=== PATIENT | female | born 1970 | race Caucasian/White ===

== ENCOUNTER 2018-06-15 15:15 | Emergency (ER) | payer OTHER, SELFPAY ==
[2018-06-15 15:18] VITALS: BP 155/97; PULSE 111; RESP 20; TEMP 37.3; O2SAT 99
--- NOTE | 2018-06-15 15:20 | DI.RAD.S_ITS ---
PROCEDURE: XR CHEST 1V INDICATIONS: chest pain TECHNIQUE: One view of the chest was acquired. COMPARISON: None. FINDINGS: Surgical changes and devices: None. Lungs and pleura: Lungs are clear. No pleural effusions or pneumothorax. Mediastinum: Mediastinal contours appear normal. Heart size is normal. Bones and chest wall: No suspicious bony lesions. Overlying soft tissues appear unremarkable. IMPRESSION: Normal chest. Dictated by: Annie Prieto M.D. on 06/15/2018 at 17:03 Approved by: Annie Prieto M.D. on 06/15/2018 at 17:05
[2018-06-15 15:55] LABS: Add Manual Diff / Slide Review NO; Basophils Absolute Auto 0 /uL (0-100); Basophils Percent Auto 0.7 % (0-2); Eosinophils Absolute Auto 200 /uL (0-450); Eosinophils Percent Auto 2.5 % (2-4); Hematocrit 39.7 % (36-46); Hemoglobin 13.1 g/dL (12.0-16.0); Lymphocytes Absolute Auto 1500 /uL (1100-4500); Mean Corpuscular HGB Conc 32.9 % (30-36); Mean Corpuscular Hemoglobin 28.5 PG (26-34); Mean Corpuscular Volume 86.5 fL (80-100); Monocytes Absolute Auto 400 /uL (0-900); Monocytes Percent Auto 5.4 % (3-14); Neutrophils Absolute Auto 4600 /uL (1500-7000); Neutrophils Percent Auto 68.4 % (50-75); Platelet Count 267 X10^3/uL (150-400); Red Blood Cell Count 4.59 X10^6/uL (4.0-5.2); Red Cell Distribution Width 13.4 % (11.6-14.8); White Blood Cell Count 6.7 X10^3/uL (4.5-11.0)
[2018-06-15 16:00] VITALS: BP 140/83; PULSE 93; RESP 14; O2SAT 98
[2018-06-15 16:04] LABS: Alanine Aminotransferase 28 IU/L (9-52); Albumin 4.5 g/dL (3.5-5.0); Albumin Globulin Ratio 1.5 (1.0-2.8); Alkaline Phosphatase 85 U/L (38-126); Aspartate Aminotransferase 25 IU/L (14-36); Bilirubin Total 0.5 mg/dL (0.2-1.3); Blood Urea Nitrogen 15 mg/dL (7-17); Calcium 8.8 mg/dL (8.4-10.2); Carbon Dioxide 22 mmol/L (22-32); Chloride 102 mmol/L (98-107); Creatine Kinase 56 U/L (30-135); Estimated Glomerular Filt Rate 59.2 mL/min (>60); Globulin 3.1 g/dL (1.7-4.1); Glucose 94 mg/dL (70-100); HEMOLYSIS 27 (0-50); Potassium 4.2 mmol/L (3.4-5.1); Sodium 136 mmol/L (137-145); Total Protein 7.6 g/dL (6.3-8.2)
[2018-06-15 16:14] LABS: Troponin I < 0.012 ng/mL (0.01-0.034)
[2018-06-15 16:50] VITALS: BP 140/84; PULSE 84; RESP 15; O2SAT 100
[2018-06-15 16:57] LABS: D Dimer < 200 ng/mL (<230)
--- NOTE | 2018-06-15 17:00 | ED_ITS ---
HPI - Chest Pain General Chief Complaint: Chest Pain Stated Complaint: CHEST/ARM PAIN Time Seen by Provider: 06/15/18 16:09 Source: patient Mode of arrival: ambulatory Limitations: no limitations History of Present Illness HPI narrative: The patient is a 47-year-old female who presents with left-sided chest and arm achiness. It has been ongoing for about 1-2 weeks. Does not change with exertion or rest. She says today is overall just not going away and she is getting nervous. She denies any shortness of breath. She can singly in her hand. It does not hurt when she breathes it is not worse with movement. It is fairly constant in nature MD complaint: chest pain Duration: constant Related Data Previous Rx's Medication Instructions Recorded sucralfate [Carafate] 1 gm PO ACHS #1 bot 02/10/16 estradiol 1 mg tablet 1 mg PO DAILY 30 Days #90 tab 05/18/18 medroxyprogesterone 5 mg tablet 5 mg PO DAILY #90 tab 05/18/18 Allergies Allergy/AdvReac Type Severity Reaction Status Date / Time amoxicillin [AMOXICILLIN] Allergy Unknown hives Unverified 07/03/17 12:09 Review of Systems Review of Systems GENERAL: Denies chills, fatigue, malaise, fever, sweats, travel HEENT: Denies sinus pain, ear pain, sore throat, difficulty swallowing, neck pain RESPIRATORY: Denies dyspnea, cough, wheezing, hemoptysis, sputum. CARDIOVASCULAR: See HPI GASTROINTESTINAL: Denies nausea, vomiting, abdominal pain, diarrhea, constipation, melena. : Denies dysuria, frequency, incontinence, hematuria, urinary retention, flank pain. MUSCULOSKELETAL: Denies weakness, joint pain, or bony pain SKIN: No rash, no erythema, no pruritus NEUROLOGIC: Denies weakness, dizziness, headache, numbness, change in speech, confusion PSYCHIATRIC: No concerning psychosocial issues. 12 point review of systems is negative except for those stated above and HPI [facility] Medical History GERD (gastroesophageal reflux disease) (Acute) Surgical History History of third molar tooth extraction Status post laparoscopic cholecystectomy Status post laparoscopy (09/27/14) Status post laparoscopy (06/24/15) Social History Smoking Status: Never smoker Social History Smoking Status: Never smoker Exam Initial Vital Signs Initial Vital Signs: Vital Signs Temperature 99.1 F 06/15/18 15:18 Pulse Rate 111 H 06/15/18 15:18 Respiratory Rate 20 06/15/18 15:18 Blood Pressure 155/97 H 06/15/18 15:18 Pulse Oximetry 99 06/15/18 15:18 GENERAL: Well-appearing, well-nourished and in no acute distress. HEENT: Head atraumatic,EOMI, pupils reactive, CARDIOVASCULAR: Regular rate and rhythm without murmurs, rubs or gallops.Pain not reproducible with palpaition or movement. RESPIRATORY: Breath sounds equal bilaterally, no wheezes rales or rhonchi. ABDOMEN: Soft, nontender. Normoactive bowel sounds all 4 quadrants. No guarding or rebound. EXTREMITIES: Normal range of motion, no clubbing or edema. Neurovascularly intact NEUROLOGICAL: Alert and oriented x4.Normal gait and speech. Cranial nerves II through XII grossly intact. SKIN: Warm, dry, no laceration, no petechiae, no rashes or lesions. Scores HEART Score Heart Score history: Slightly Suspicious Heart Score EKG: Non-Specific repolarization disturbance Heart Score Age: 45-64 years old Heart Score risk factors: No known risk factors Heart Score troponin: < or = to normal limit Heart Score Total: 2 PERC Score Age greater than or equal to 50 years: No Heart rate greater than or equal to 100 bpm: Yes Room Air O2 Sat less than 95%: No Unilateral leg swelling: No Recent trauma or surgery: No Hemoptysis: No Prior PE or DVT: No Hormone Use: Yes Total PERC Score: 2 Course Orders Ordered: ED Orders 06/15/18 15:20 XR chest 1V Stat EKG-12 Lead Stat 06/15/18 15:40 Complete Blood Count AUTO DIFF Stat Comprehensive Metabolic Panel Stat Troponin & CK Cardiac Panel Stat 06/15/18 16:40 D Dimer Stat Vital Signs - 8 hr 06/15/18 15:18 06/15/18 16:00 06/15/18 16:50 Temperature 99.1 F Pulse Rate 111 H 93 H 84 Respiratory Rate 20 14 15 Blood Pressure 155/97 H Blood Pressure [Left Arm] 140/83 140/84 Pulse Oximetry 99 98 100 03/24/19 17:15 06/15/18 17:47 Temperature Pulse Rate 86 84 Respiratory Rate 15 15 Blood Pressure 130/81 Blood Pressure [Left Arm] 144/80 H Pulse Oximetry 100 100 MDM - Chest Pain Lab Data Attestation: I reviewed the patient's lab results. Result diagrams: 06/15/18 15:40 06/15/18 15:40 Lab Results 06/15/18 06/15/18 06/15/18 Range/Units 15:40 15:40 16:40 WBC 6.7 (4.5-11.0) X10^3/uL RBC 4.59 (4.0-5.2) X10^6/uL Hgb 13.1 (12.0-16.0) g/dL Hct 39.7 (36-46) % MCV 86.5 (80-100) fL MCH 28.5 (26-34) PG MCHC 32.9 (30-36) % RDW 13.4 (11.6-14.8) % Plt Count 267 (150-400) X10^3/uL Neut % (Auto) 68.4 (50-75) % Lymph % (Auto) 23.0 L (25-40) % [place] % (Auto) 5.4 (3-14) % Eos % (Auto) 2.5 (2-4) % Baso % (Auto) 0.7 (0-2) % Neut # (Auto) 4600 (8587-7550) /uL Lymph # (Auto) 1500 (3389-7086) /uL [place] # (Auto) 400 (0-900) /uL Eos # (Auto) 200 (0-450) /uL Baso # (Auto) 0 (0-100) /uL D-Dimer < 200 (<230) ng/mL Sodium 136 L (137-145) mmol/L Potassium 4.2 (3.4-5.1) mmol/L Chloride 102 (98-107) mmol/L Carbon Dioxide 22 (22-32) mmol/L BUN 15 (7-17) mg/dL Creatinine 1.00 (0.52-1.04) mg/dL Estimated GFR 59.2 L (>60) mL/min BUN/Creatinine Ratio 15.0 (6-22) Glucose 94 (70-100) mg/dL Calcium 8.8 (8.4-10.2) mg/dL Total Bilirubin 0.5 (0.2-1.3) mg/dL AST 25 (14-36) IU/L ALT 28 (9-52) IU/L Alkaline Phosphatase 85 (38-126) U/L Total Creatine Kinase 56 (30-135) U/L CK-MB (CK-2) TNP CK-MB (CK-2) Rel Index TNP Troponin I < 0.012 (0.01-0.034) ng/mL Total Protein 7.6 (6.3-8.2) g/dL Albumin 4.5 (3.5-5.0) g/dL Globulin 3.1 (1.7-4.1) g/dL Albumin/Globulin Ratio 1.5 (1.0-2.8) ECG Data Attestation: I personally reviewed and interpreted this ECG as follows: Prior ECG tracings: not available for review Interpretation: Normal sinus rhythm rate [address] changes no T-wave inversions MDM Narrative Medical decision making narrative: Patient has ongoing pain is fairly constant troponin negative EKG and x-ray negative. D-dimer also negative unlikely to be PE. Patient strongly recommended outpatient workup. At this time patient agreed she will call her PCP 1st thing in the morning. We also discussed warning signs and when to return to the ER. She also agrees and understands that this may need further workup. This time I recommended aspirin 81 mg once daily. Discharge Plan Departure Patient Disposition: Home Clinical Impression: Atypical chest pain Discharge Date/Time: 06/15/18 17:48 Interventions: ED Discharge Assessment Last Done: 06/15/18 17:47 Instructions: DI for Atypical Chest Pain Activity Restrictions/Additional Instructions: *You have been diagnosed with atypical chest pain *What to d:o at this time her blood work and x-ray are reassuring however I still strongly recommend that you get an outpatient stress test *Continue to take medications as directed Aspirin 81 mg daily *Follow up with your primary care provider in 2-3 days *Return to ER if you should have increasing chest pain worsening symptoms shortness of breath or any new, worsening or concerning symptoms Prescriptions: No Action sucralfate [Carafate] 1 GM/10 ML suspension 1 gm PO ACHS Qty: 1 RF: 0 medroxyprogesterone 5 mg tablet 5 mg PO DAILY Qty: 90 RF: 3 estradiol 1 mg tablet 1 mg PO DAILY 30 Days Qty: 90 RF: 3 Referrals: Emilio Sterling DO [Primary Care Provider] -
[2018-06-15 17:15] VITALS: BP 144/80; PULSE 86; RESP 15; O2SAT 100
[2018-06-15 17:47] VITALS: BP 130/81; PULSE 84; RESP 15; O2SAT 100
== END 2018-06-15 17:48 | disposition home or self-care (01) ==
PROVIDERS: Emergency Provider Emergency Medicine; Family Provider Family Medicine; PCP Family Medicine
DX: R07.89 Other chest pain (principal)
CPT/HCPCS: 36415; 71045; 80053; 82550; 84484; 85025; 85379; 93005; 93041; 99283; 99285

== ENCOUNTER → 2018-08-29 09:28 | Outpatient (CLI) | payer OTHER, SELFPAY ==
--- NOTE | 2018-08-29 15:08 | PM.TREADMILL ---
Cardiac Stress Test Report Referral & Results Date Patient Seen: 08/29/18 Requesting provider: Emilio Sterling Indication: Chest pain Rest ECG: Unremarkable, mild resting sinus tachycardia Procedure Note: Today following both written and verbal informed consent the patient was exercised according to a standard Jude protocol patient went for a total of 9 minutes 2nd achieving a maximum heart rate of 169 maximum systolic blood pressure of 230. This is approximately 10.1 METS. Exercise was terminated at this point because of targets are met. Patient was also given Cardiolite through a previously started Hep-Lock IV by the hvac engineering technician approximately 1 minute prior to the cessation of exercise. Patient resting tachycardia. Otherwise normal heart rate and blood pressure response to exercise. No ST-T segment changes identified Rare PVCs Function aerobic impairment rated-10% on the active scale or 10% better than average Impression: No ECG evidence of ischemia Excellent exercise capacity Resting tachycardia and at least borderline hypertension Please see perfusion imaging report as well Please note: Actual ECG tracings can be found in the PACS system.
--- NOTE | 2018-08-30 07:29 | DI.NM.S_ITS ---
DATE OF SERVICE: 08/29/2018 STUDY TYPE: Treadmill nuclear stress test. RADIOISOTOPES: Resting dose is 12.3 mCi of Tc-99m and stress dose is 26.2 mCi of Tc-99m. CLINICAL: The patient was referred for a nuclear stress for chest pain. SYMPTOMS DURING THE STUDY: No angina during the study. ECG: Normal sinus rhythm without ST-T changes at rest. With exercise, there were no significant ST-T changes which would suggest ischemic heart disease. Rare PVCs. PERFUSION IMAGING: No perfusion evidence of ischemia or infarction. GATED IMAGES: Normal left ventricular size, wall motion, and systolic function with post-stress EF of 81%. Resting end-diastolic volume is 101 cc. TID ratio is normal at 0.71. Bqys-[id number] ratio is 0.52. CONCLUSIONS: Low risk, normal treadmill nuclear stress test. 1. No perfusion evidence of ischemia or infarction. 2. Normal left ventricular size, wall motion, and systolic function (post- stress ejection fraction (EF of 81%). 3. No angina during the study. 4. No ECG evidence of ischemia. 5. Good exercise capacity (10.1 METs, RICKIE -10% on active scale). Target heart rate achieved. 6. Hypertension at rest (140/100 mmHg) with borderline hypertensive response to exercise (230/80 mmHg). 7. Compared to the nuclear stress test done on 08/31/2013, no significant change. Molly Dillard - BYRON/tato/ts doc#: [id number]/job#: [id number] dd: 08/29/2018 16:39:00 dt: 08/30/2018 07:19:00 DICTATING /COPIES TO: Rajeev Blair MD COPIES MNE: SUPRIYA
== END ==
PROVIDERS: PCP Family Medicine; Visit Provider Family Medicine
DX: R07.89 Other chest pain (principal); R00.0 Tachycardia, unspecified; R03.0 Elevated blood-pressure reading, without diagnosis of hypertension
CPT/HCPCS: 78452; 93016; 93017; 93018; A9502

== ENCOUNTER 2018-11-20 10:25 | Emergency (ER) | payer OTHER, SELFPAY ==
[2018-11-20 10:29] VITALS: BP 159/88; PULSE 94; RESP 16; TEMP 37.2; O2SAT 97; BMI 31.4
[2018-11-20 11:17] LABS: Amorphous Sediment Urine 1+; Bacteria Urine Moderate (10-30); Culture Indicated Urine Specimen Cultured; RBC Urine 0-1/HPF (0-5/HPF); Squamous Epithelial Cell Urine 1-5 /HPF (0-5/HPF); WBC Urine 1-5/HPF (0-5/HPF)
[2018-11-20 11:59] VITALS: BP 145/89; PULSE 88; RESP 16; O2SAT 97
--- NOTE | 2018-11-20 12:56 | ED.ABDPAIN ---
HPI - Abdominal Pain General Chief Complaint: Abdominal Pain Stated Complaint: PAIN RADIATING FROM STOMACH TO BACK Time Seen by Provider: 11/20/18 11:17 Source: patient Mode of arrival: ambulatory Limitations: no limitations History of Present Illness HPI narrative: Patient comes emergency department complaining of abdominal pain which started 2 days ago. Patient states the pain is located mainly in her right upper quadrant and radiates around to her back and flank. She denies any dysuria. No fevers. No nausea or vomiting. Patient has had a cholecystectomy back in 2009. Patient denies any cough or shortness of breath that are new. No chest pain. No diarrhea or blood in the stools. No melena. No history of ulcers. Patient does not know of any history of pancreatitis. No other complaints at this time. Related Data Home Medications Medication Instructions Recorded Confirmed Protandim 1 tab PO DAILY 11/20/18 11/20/18 estradiol 1 mg PO DAILY 11/20/18 11/20/18 medroxyprogesterone 5 mg PO DAILY 11/20/18 11/20/18 omeprazole 20 mg PO BID 11/20/18 11/20/18 Previous Rx's Medication Instructions Recorded ondansetron 8 mg PO Q8H PRN #10 tab 11/20/18 Allergies Allergy/AdvReac Type Severity Reaction Status Date / Time amoxicillin [AMOXICILLIN] Allergy Unknown hives Verified 11/20/18 10:29 Review of Systems Constitutional Constitutional: Denies chills, Denies fatigue, Denies fever(s), Denies frequent falls, Denies lethargy and Denies weakness Eyes Eyes: Denies change in vision, Denies eye discharge, Denies irritation and Denies loss of vision ENT Ears, Nose, Mouth, and Throat: Denies change in voice, Denies dizziness, Denies neck pain, Denies sore throat and Denies throat swelling Cardiovascular Cardiovascular: Denies chest pain, Denies irregular heart rhythm, Denies lightheadedness, Denies palpitations, Denies dyspnea, Denies dyspnea on exertion and Denies orthopnea Respiratory Respiratory: Denies cough, Denies dyspnea, Denies dyspnea on exertion and Denies wheezing Gastrointestinal Gastrointestinal: Reports abdominal pain, Denies change in bowel habits, Denies diarrhea, Denies nausea and Denies vomiting Genitourinary Genitourinary: Denies hematuria, Denies flank pain, Denies urinary incontinence and Denies urinary urgency Musculoskeletal Musculoskeletal: Denies back pain, Denies muscle weakness, Denies neck pain, Denies numbness and Denies tingling Integumentary/Breasts Skin/Breast: Denies pruritus, Denies erythema, Denies rash and Denies wounds Neurologic Neurologic: Denies behavioral changes, Denies confusion, Denies dizziness, Denies frequent falls, Denies loss of vision, Denies numbness, Denies tingling and Denies weakness Psychiatric Psychiatric: Denies anxiety, Denies behavioral changes, Denies confusion, Denies depression, Denies homicidal ideation and Denies suicidal ideation Endocrine Endocrine: Denies fatigue, Denies flushing and Denies palpitations Hematologic/Lymphatic Hematologic/Lymphatic: Denies easy bruising Allergic/Immunologic Allergic/Immunologic: Denies urticaria, Denies throat swelling and Denies wheezing [facility] Medical History GERD (gastroesophageal reflux disease) (Acute) Surgical History History of third molar tooth extraction Status post laparoscopic cholecystectomy Status post laparoscopy (09/27/14) Status post laparoscopy (06/24/15) Social History Smoking Status: Never smoker Social History Smoking Status: Never smoker Exam Initial Vital Signs Initial Vital Signs: Vital Signs Temperature 98.9 F 11/20/18 10:29 Pulse Rate 94 H 11/20/18 10:29 Respiratory Rate 16 11/20/18 10:29 Blood Pressure 159/88 H 11/20/18 10:29 Pulse Oximetry 97 11/20/18 10:29 Const General: cooperative and well developed Nutritional Appearance: well nourished Orientation: alert, awake, oriented x3 and not confused [facility] Head: normocephalic and atraumatic Ears: external ears normal Nose: external nose normal and No nasal discharge Face and sinus: face symmetric and No dry mucous membranes Mouth: oral mucosae normal and moist mucous membranes Teeth and gingiva: dentition normal Eyes General: appearance normal, both eyes and all related structures Eyelids: eyelids normal Conjunctivae: conjunctivae normal Sclera: sclerae normal Pupils: PERRL EOM: EOM intact bilaterally Neck Neck: normal visual inspection, trachea midline, No lymphadenopathy, No midline deformity and No JVD Lymphatic: No lymphedema Chest Chest: normal inspection of the chest Resp Effort & Inspection: normal respiratory effort, able to speak in complete sentences, no respiratory distress and no use of accessory muscles Auscultation: clear to auscultation bilaterally, no rales, no rhonchi and no wheezes Cardio Rate: regular rate Rhythm: regular rhythm Heart Sounds: no click, no gallops, no murmurs and no rubs Pulses: normal peripheral pulses GI Inspection: non-distended Palpation: soft, no hepatosplenomegaly, No guarding, No pulsatile mass and tender (Diffuse, worse in epigastrium.) Back/Spine/Pelvis Back: No CVA tenderness Cervical Spine: cervical ROM normal and No pain with cervical ROM Thoracic/Lumbar Spine: thoracic and lumbar spine normal to inspection Skin General: no rashes or lesions noted, No jaundice and No petechiae Neuro General: alert, oriented x3, gait normal and no focal motor deficits Speech: speech normal Extrem General: full ROM, no clubbing, cyanosis or edema, no pedal edema and no calf tenderness Psych Appearance: well kempt Mental Status: mental status grossly normal Attitude: cooperative Thought Content: normal and suicidality Judgment: judgment good Course Course Course Narrative: Patient was treated with IV fluids, and worked up with labs, which were unremarkable. She had already had a cholecystectomy, so I got a CT of the abdomen and pelvis to evaluate for other potential pathology causing her symptoms. This did show mild colitis of the transverse colon. The patient was found to be feeling a little better after symptomatic intervention, and I did feel she was stable for discharge home. The patient was afebrile, and I did not feel that antibiotics were indicated at this time. Her symptoms are most likely viral in nature, and I have advised her that they will pass on their own. We have discussed home management of symptoms, as well as the usual indications for return. Orders Ordered: Discontinued Medications Sodium Chloride (Normal Saline 0.9%) 1,000 mls @ 1,000 mls/hr IV BOLUS ONE Stop: 11/20/18 13:54 Last Infusion: 11/20/18 15:07 Dose: 0 mls/hr Documented by: Admin: 11/20/18 13:37 Dose: 1,000 mls/hr Documented by: DANIAL Vital Signs Vital signs: Vital Signs - 8 hr 11/20/18 10:29 11/20/18 11:59 Temperature 98.9 F Pulse Rate 94 H 88 Respiratory Rate 16 16 Blood Pressure 159/88 H Blood Pressure [Left Arm] 145/89 H Pulse Oximetry 97 97 MDM - Abdominal Pain Medical Records Attestation: I reviewed the patient's medical records. Lab Data Attestation: I reviewed the patient's lab results. Result diagrams: 11/20/18 13:20 11/20/18 13:20 Labs: Lab Results 11/20/18 11/20/18 11/20/18 Range/Units 10:35 13:20 13:20 WBC 4.5 (4.5-11.0) X10^3/uL RBC 4.59 (4.0-5.2) X10^6/uL Hgb 13.4 (12.0-16.0) g/dL Hct 40.2 (36-46) % MCV 87.5 (80-100) fL MCH 29.3 (26-34) PG MCHC 33.5 (30-36) % RDW 13.5 (11.6-14.8) % Plt Count 253 (150-400) X10^3/uL Neut % (Auto) 62.1 (50-75) % Lymph % (Auto) 26.4 (25-40) % [place] % (Auto) 6.3 (3-14) % Eos % (Auto) 4.6 H (2-4) % Baso % (Auto) 0.6 (0-2) % Neut # (Auto) 2800 (1551-1267) /uL Lymph # (Auto) 1200 (5707-6056) /uL [place] # (Auto) 300 (0-900) /uL Eos # (Auto) 200 (0-450) /uL Baso # (Auto) 0 (0-100) /uL Sodium 138 (137-145) mmol/L Potassium 4.2 (3.4-5.1) mmol/L Chloride 103 (98-107) mmol/L Carbon Dioxide 25 (22-32) mmol/L BUN 10 (7-17) mg/dL Creatinine 0.70 (0.52-1.04) mg/dL Estimated GFR > 60.0 (>60) mL/min BUN/Creatinine Ratio 14.3 (6-22) Glucose 94 (70-100) mg/dL Calcium 9.6 (8.4-10.2) mg/dL Total Bilirubin 0.6 (0.2-1.3) mg/dL AST 36 (14-36) IU/L ALT 28 (9-52) IU/L Alkaline Phosphatase 78 (38-126) U/L Total Protein 7.6 (6.3-8.2) g/dL Albumin 4.4 (3.5-5.0) g/dL Globulin 3.2 (1.7-4.1) g/dL Albumin/Globulin Ratio 1.4 (1.0-2.8) Urine RBC 0-1/hpf (0-5/HPF) Urine WBC 1-5/hpf (0-5/HPF) Ur Squamous Epith Cells 1-5 /hpf (0-5/HPF) Amorphous Sediment 1+ Urine Bacteria Moderate (10-30) H (None) Ur Culture Indicated? Specimen cultured Point of care testing: Urine Dip Bedside Urine Glucose Negative Bedside Urine Bilirubin - Negative Bedside Urine Ketone - Negative Urine Specific [place] 1.015 Bedside Urine Occult Blood +/- Bedside Urine pH 6.5 Bedside Urine Protein - Negative Bedside Urine Urobilinogen - Negative Bedside Urine Nitrite - Negative Bedside Urine Leukocytes +/- [address] scan - abdomen: Radiologist's impression: PROCEDURE: CT ABDOMEN PELVIS W CON INDICATIONS: abdominal pain TECHNIQUE: After the administration of intravenous contrast, 5 mm thick sections acquired from the diaphragm to the symphysis. 5 mm coronal and sagittal reformats were acquired. For radiation dose reduction, the following was used: automated exposure control, adjustment of mA and/or kV according to patient size. COMPARISON: [facility], CT, ABDOMEN/PELVIS WITH CONTRAST, 12/20/2014, 8:21. FINDINGS: Image quality: Excellent. ABDOMEN: Lung bases: There is mild dependent atelectasis bilaterally. Heart size is normal. Solid organs: Evaluation of the liver demonstrates no focal hepatic lesions. The gallbladder is surgically absent. Biliary system is non-dilated. Pancreas enhances normally. No peripancreatic fat stranding or fluid collections. No pancreatic duct dilatation. The spleen is normal in size. No adrenal nodules. Kidneys demonstrate no hydronephrosis. Peritoneum and bowel: Small bowel loops demonstrate normal wall thickness and caliber. The appendix is normal in appearance. There is mild segmental wall thickening within the transverse colon with mucosal enhancement and mild pericolonic hyperemia. Findings compatible with a mild colitis. There is colonic diverticulosis without acute diverticulitis. No free fluid or air. Nodes and vessels: No retroperitoneal or mesenteric adenopathy by size criteria. Aorta and inferior vena cava are normal in size. Miscellaneous: No ventral hernias. PELVIS: Genitourinary: Bladder wall thickness is normal. Miscellaneous: No inguinal hernias or adenopathy. Bones: No suspicious bony lesions. No vertebral body compression fractures. IMPRESSION: 1. Mild segmental colitis in the transverse colon, likely infectious or inflammatory in etiology. 2. Colonic diverticulosis without acute diverticulitis. Dictated by: Severo Hurley M.D. on 11/20/2018 at 15:52 Approved Discharge Plan Departure Patient Disposition: Home Clinical Impression: Colitis Abdominal pain Qualifiers: Abdominal location: upper abdomen, unspecified Qualified Code(s): R10.10 - Upper abdominal pain, unspecified Discharge Date/Time: 11/20/18 17:26 Instructions: DI for Abdominal Pain-Adult, DI for Colitis Activity Restrictions/Additional Instructions: Your labs look good. Your CT scan shows inflammation of your large intestine, which is most likely caused by a viral infection. This should pass on its own without further complications. However, if you began to develop fevers, along with worsening abdominal pain, you should return to the emergency department for further evaluation. Your prescription has been electronically transmitted to [facility] in [place]. Prescriptions: New ondansetron 4 mg tablet,disintegrating 8 mg PO Q8H PRN (Reason: nausea and vomiting) Qty: 10 RF: 0 No Action omeprazole 20 mg capsule,delayed release(DR/EC) 20 mg PO BID RF: 0 estradiol 1 mg tablet 1 mg PO DAILY RF: 0 medroxyprogesterone 5 mg tablet 5 mg PO DAILY RF: 0 Protandim 1 tab PO DAILY RF: 0 Referrals: Emilio Sterling DO [Primary Care Provider] -
[2018-11-20 13:27] LABS: Add Manual Diff / Slide Review NO; Basophils Absolute Auto 0 /uL (0-100); Basophils Percent Auto 0.6 % (0-2); Eosinophils Absolute Auto 200 /uL (0-450); Eosinophils Percent Auto 4.6 % (2-4); Hematocrit 40.2 % (36-46); Hemoglobin 13.4 g/dL (12.0-16.0); Lymphocytes Absolute Auto 1200 /uL (1100-4500); Lymphocytes Percent Auto 26.4 % (25-40); Mean Corpuscular HGB Conc 33.5 % (30-36); Mean Corpuscular Hemoglobin 29.3 PG (26-34); Mean Corpuscular Volume 87.5 fL (80-100); Monocytes Absolute Auto 300 /uL (0-900); Monocytes Percent Auto 6.3 % (3-14); Neutrophils Absolute Auto 2800 /uL (1500-7000); Neutrophils Percent Auto 62.1 % (50-75); Platelet Count 253 X10^3/uL (150-400); Red Blood Cell Count 4.59 X10^6/uL (4.0-5.2); Red Cell Distribution Width 13.5 % (11.6-14.8); White Blood Cell Count 4.5 X10^3/uL (4.5-11.0)
[2018-11-20] MEDS: SODIUM CHLORIDE 0.9% 1,000 ML 1000 ML IV (13:37)
[2018-11-20 13:39] VITALS: BP 138/88; PULSE 80; RESP 16; O2SAT 100
[2018-11-20 13:39] LABS: Alanine Aminotransferase 28 IU/L (9-52); Albumin 4.4 g/dL (3.5-5.0); Albumin Globulin Ratio 1.4 (1.0-2.8); Alkaline Phosphatase 78 U/L (38-126); Aspartate Aminotransferase 36 IU/L (14-36); BUN Creatinine Ratio 14.3 (6-22); Bilirubin Total 0.6 mg/dL (0.2-1.3); Blood Urea Nitrogen 10 mg/dL (7-17); Calcium 9.6 mg/dL (8.4-10.2); Carbon Dioxide 25 mmol/L (22-32); Chloride 103 mmol/L (98-107); Estimated Glomerular Filt Rate > 60.0 mL/min (>60); Globulin 3.2 g/dL (1.7-4.1); Glucose 94 mg/dL (70-100); HEMOLYSIS < 15 (0-50); Potassium 4.2 mmol/L (3.4-5.1); Sodium 138 mmol/L (137-145); Total Protein 7.6 g/dL (6.3-8.2)
[2018-11-20 14:30] VITALS: BP 134/83; PULSE 80; RESP 16; O2SAT 98
[2018-11-20 15:04] VITALS: BP 132/79; PULSE 64; RESP 17; O2SAT 98
--- NOTE | 2018-11-20 15:12 | DI.CT.S_ITS ---
PROCEDURE: CT ABDOMEN PELVIS W CON INDICATIONS: abdominal pain TECHNIQUE: After the administration of intravenous contrast, 5 mm thick sections acquired from the diaphragm to the symphysis. 5 mm coronal and sagittal reformats were acquired. For radiation dose reduction, the following was used: automated exposure control, adjustment of mA and/or kV according to patient size. COMPARISON: [facility], CT, ABDOMEN/PELVIS WITH CONTRAST, 12/20/2014, 8:21. FINDINGS: Image quality: Excellent. ABDOMEN: Lung bases: There is mild dependent atelectasis bilaterally. Heart size is normal. Solid organs: Evaluation of the liver demonstrates no focal hepatic lesions. The gallbladder is surgically absent. Biliary system is non-dilated. Pancreas enhances normally. No peripancreatic fat stranding or fluid collections. No pancreatic duct dilatation. The spleen is normal in size. No adrenal nodules. Kidneys demonstrate no hydronephrosis. Peritoneum and bowel: Small bowel loops demonstrate normal wall thickness and caliber. The appendix is normal in appearance. There is mild segmental wall thickening within the transverse colon with mucosal enhancement and mild pericolonic hyperemia. Findings compatible with a mild colitis. There is colonic diverticulosis without acute diverticulitis. No free fluid or air. Nodes and vessels: No retroperitoneal or mesenteric adenopathy by size criteria. Aorta and inferior vena cava are normal in size. Miscellaneous: No ventral hernias. PELVIS: Genitourinary: Bladder wall thickness is normal. Miscellaneous: No inguinal hernias or adenopathy. Bones: No suspicious bony lesions. No vertebral body compression fractures. IMPRESSION: 1. Mild segmental colitis in the transverse colon, likely infectious or inflammatory in etiology. 2. Colonic diverticulosis without acute diverticulitis. Dictated by: Severo Hurley M.D. on 11/20/2018 at 15:52 Approved by: Severo Hurley M.D. on 11/20/2018 at 15:59
[2018-11-20 17:20] VITALS: BP 138/84; PULSE 80; RESP 16; O2SAT 99
== END 2018-11-20 17:26 | disposition home or self-care (01) ==
PROVIDERS: Emergency Provider Emergency Medicine; PCP Family Medicine
DX: K52.9 Noninfective gastroenteritis and colitis, unspecified (principal); R10.10 Upper abdominal pain, unspecified
CPT/HCPCS: 36591; 74177; 80053; 81003; 81015; 85025; 87077; 87086; 96360; 99283; 99285

== ENCOUNTER 2019-10-03 11:39 | Emergency (ER) | payer OTHER, SELFPAY ==
[2019-10-03] VITALS (7 sets, daily range): BP systolic 175–179; BP diastolic 82–83; PULSE 98–116; RESP 15–23; TEMP 36.9; O2SAT 96–100; BMI 30.7
--- NOTE | 2019-10-03 11:50 | ED.ABDPAIN ---
HPI - Abdominal Pain General Chief Complaint: Abdominal Pain Stated Complaint: Pelvic Pain Time Seen by Provider: 10/03/19 11:43 Source: patient Mode of arrival: Ambulatory Limitations: no limitations History of Present Illness HPI narrative: 49-year-old female nonsmoker with history of right ovarian cyst presents with few days of gradually worsening left lower quadrant pain and radiation to her back. She denies any history of the same and states that is persistent and made worse with motion and improves with rest. She denies any fever chills nor nausea, vomiting or diarrhea. She has never had a colonoscopy. She denies any history of kidney stones. She denies dysuria, frequency or urgency. MD complaint: abdominal pain and flank pain Onset (ago): day(s) Pain Consistency: constant Location: LLQ and L flank Severity: moderate Quality: cramping and aching Radiation: L flank Relieving factors: rest Exacerbating factors: movement Associated symptoms: denies other symptoms Related Data Previous Rx's Medication Instructions Recorded estradiol 0.5 mg tablet 0.5 mg PO DAILY #90 tab 05/26/19 medroxyprogesterone 2.5 mg tablet 2.5 mg PO DAILY #90 tab 05/26/19 ciprofloxacin HCl 500 mg PO BID #20 tab 10/03/19 hydrocodone-acetaminophen 1 tab PO Q4-6H PRN #10 tab 10/03/19 metronidazole [Flagyl] 500 mg PO Q8H 10 Days #30 tab 10/03/19 ondansetron 4 mg PO TID-QID PRN #10 tab 10/03/19 Allergies Allergy/AdvReac Type Severity Reaction Status Date / Time amoxicillin [AMOXICILLIN] Allergy Unknown hives Verified 10/03/19 11:54 Review of Systems Constitutional Constitutional: Denies chills, Denies fatigue, Denies fever(s), Denies frequent falls, Denies lethargy and Denies weakness Eyes Eyes: Denies change in vision, Denies eye discharge, Denies irritation and Denies loss of vision ENT Ears, Nose, Mouth, and Throat: Denies change in voice, Denies dizziness, Denies neck pain, Denies sore throat and Denies throat swelling Cardiovascular Cardiovascular: Denies chest pain, Denies irregular heart rhythm, Denies lightheadedness, Denies palpitations, Denies dyspnea, Denies dyspnea on exertion and Denies orthopnea Respiratory Respiratory: Denies cough, Denies dyspnea, Denies dyspnea on exertion and Denies wheezing Gastrointestinal Gastrointestinal: Reports abdominal pain, Denies change in bowel habits, Denies diarrhea, Denies nausea and Denies vomiting Musculoskeletal Musculoskeletal: Denies neck pain and Denies numbness Integumentary/Breasts Skin/Breast: Denies pruritus, Denies erythema, Denies rash and Denies wounds Neurologic Neurologic: Denies behavioral changes, Denies confusion, Denies dizziness, Denies frequent falls, Denies loss of vision, Denies numbness and Denies weakness Psychiatric Psychiatric: Denies anxiety, Denies behavioral changes, Denies confusion, Denies depression, Denies homicidal ideation and Denies suicidal ideation Endocrine Endocrine: Denies fatigue, Denies flushing and Denies palpitations Hematologic/Lymphatic Hematologic/Lymphatic: Denies easy bruising Allergic/Immunologic Allergic/Immunologic: Denies urticaria, Denies throat swelling and Denies wheezing Patient History Medical History GERD (gastroesophageal reflux disease) (Acute) Surgical History History of third molar tooth extraction Status post laparoscopic cholecystectomy Status post laparoscopy (09/27/14) Status post laparoscopy (06/24/15) Social History Smoking Status: Never smoker Smoking Status: Never smoker Exam Narrative Exam Narrative: GENERAL: [49] year old patient appears stated age. Well-nourished, well-developed patient, in mild distress. HEAD: Atraumatic. Normocephalic. EYES: Pupils equal round and reactive. Extraocular motions intact. No scleral icterus. No injection or drainage. ENT: Nose without bleeding, purulent drainage. Throat without erythema, tonsillar hypertrophy or exudate. Airway patent. NECK: Trachea midline. Non tender CARDIOVASCULAR: Regular rate and rhythm without murmurs, gallops, or rubs. RESPIRATORY: Clear to auscultation. Breath sounds equal bilaterally. No wheezes, rales, or rhonchi. GASTROINTESTINAL: Abdomen soft, left lower quadrant pain, nondistended. EXTREMITIES: No edema or joint tenderness. BACK: Nontender without deformity or crepitance. No flank tenderness. NEURO: AOx3. SKIN: No rash or erythema of visible areas Initial Vital Signs Initial Vital Signs: Vital Signs Temperature 98.5 F 10/03/19 11:45 Pulse Rate 116 H 10/03/19 11:45 Respiratory Rate 15 10/03/19 11:45 Blood Pressure 179/83 H 10/03/19 11:45 Pulse Oximetry 96 10/03/19 11:45 Course Orders Ordered: ED Orders 10/03/19 11:51 EKG-12 Lead Stat 10/03/19 12:00 Complete Blood Count AUTO DIFF Stat Comprehensive Metabolic Panel Stat Lipase Stat Urine Microscopic Stat 10/03/19 12:17 CT abdomen pelvis w con Stat Discontinued Medications Sodium Chloride (Normal Saline 0.9%) 1,000 mls @ 1,000 mls/hr IV BOLUS ONE Stop: 10/03/19 12:50 Last Infusion: 10/03/19 13:32 Dose: 0 mls/hr Documented by: Admin: 10/03/19 12:57 Dose: 1,000 mls/hr Documented by: PEGGY Vital Signs Vital signs: Vital Signs - 8 hr 10/03/19 11:45 10/03/19 11:54 10/03/19 12:00 Temperature 98.5 F Pulse Rate 116 H 109 H 105 H Respiratory Rate 15 Blood Pressure 179/83 H Pulse Oximetry 96 97 97 10/03/19 12:30 10/03/19 13:00 10/03/19 13:22 Temperature Pulse Rate 104 H 102 H 98 H Respiratory Rate 18 20 23 Blood Pressure 175/82 H Pulse Oximetry 97 98 100 10/03/19 13:26 Temperature Pulse Rate Respiratory Rate Blood Pressure 175/82 H Pulse Oximetry MDM - Abdominal Pain Lab Data Result diagrams: 10/03/19 12:00 10/03/19 12:00 Labs: Lab Results 10/03/19 10/03/19 10/03/19 Range/Units 12:00 12:00 12:00 WBC 10.2 (4.5-11.0) X10^3/uL RBC 4.40 (4.0-5.2) X10^6/uL Hgb 12.8 (12.0-16.0) g/dL Hct 38.7 (36-46) % MCV 88.0 (80-100) fL MCH 29.1 (26-34) PG MCHC 33.0 (30-36) % RDW 13.3 (11.6-14.8) % Plt Count 228 (150-400) X10^3/uL Neut % (Auto) 83.2 H (50-75) % Lymph % (Auto) 8.9 L (25-40) % Ocean % (Auto) 6.2 (3-14) % Eos % (Auto) 1.2 L (2-4) % Baso % (Auto) 0.5 (0-2) % Neut # (Auto) 8500 H (8257-2050) /uL Lymph # (Auto) 900 L (3111-5027) /uL Ocean # (Auto) 600 (0-900) /uL Eos # (Auto) 100 (0-450) /uL Baso # (Auto) 0 (0-100) /uL Sodium 136 L (137-145) mmol/L Potassium 4.0 (3.4-5.1) mmol/L Chloride 103 (98-107) mmol/L Carbon Dioxide 26 (22-32) mmol/L BUN 10 (7-17) mg/dL Creatinine 0.72 (0.52-1.04) mg/dL Estimated GFR > 60.0 (>60) mL/min BUN/Creatinine Ratio 13.9 (6-22) Glucose 111 H (70-100) mg/dL Calcium 9.2 (8.4-10.2) mg/dL Total Bilirubin 0.8 (0.2-1.3) mg/dL AST 23 (14-36) IU/L ALT 16 (<35) IU/L Alkaline Phosphatase 98 (38-126) U/L Total Protein 7.6 (6.3-8.2) g/dL Albumin 4.4 (3.5-5.0) g/dL Globulin 3.2 (1.7-4.1) g/dL Albumin/Globulin Ratio 1.4 (1.0-2.8) Lipase 49 (23-300) U/L Urine RBC 1-5/hpf (0-5/HPF) Urine WBC None seen (0-5/HPF) Ur Squamous Epith Cells 5-10 /hpf H (0-5/HPF) Urine Bacteria None seen (None) Ur Culture Indicated? Cult not indicated Point of care testing: Urine Dip Bedside Urine Glucose Negative Bedside Urine Bilirubin - Negative Bedside Urine Ketone - Negative Urine Specific Comfort 1.010 Bedside Urine Occult Blood +/- Bedside Urine pH 6.5 Bedside Urine Protein - Negative Bedside Urine Urobilinogen - Negative Bedside Urine Nitrite - Negative Bedside Urine Leukocytes - Negative Esterase Imaging Data CT scan - abdomen/pelvis: Radiologist's Impression: Molly Dillard 49 F [address] [address] [address] Scan Report Signed Patient: Molly Dillard LMR#: [id number] : 1970Acct:[id number] Age/Sex: 49 / FDate of Service: 10/03/19 Loc: ED Accession Number: [id number] Procedure: CT abdomen pelvis w con Ordering Provider: Melquiades Perez D.O. PROCEDURE: CT ABDOMEN PELVIS W CON INDICATIONS: severe LLQ pain with radiation to back TECHNIQUE: After the administration of oral and intravenous contrast, 5 mm thick sections acquired from the diaphragms to the symphysis. 5 mm thick coronal and sagittal reformats were performed. For radiation dose reduction, the following was used: automated exposure control, adjustment of mA and/or kV according to patient size. COMPARISON: [facility], CT, CT ABDOMEN PELVIS W CON, 11/20/2018, 15:28. [facility], CT, ABDOMEN/PELVIS WITH CONTRAST, 12/20/2014, 8:21. FINDINGS: Image quality: Diagnostic. ABDOMEN: Lung bases: Lung bases are clear. Minimal atelectasis versus scarring within the lung bases is present. Heart size is normal. Solid organs: Liver is normal in size and enhancement. Gallbladder is surgically absent. Biliary system is non-dilated. Pancreas enhances normally. Spleen is normal in size and enhancement. No adrenal nodules. Kidneys are normal in size and enhancement, without hydronephrosis. Peritoneum and bowel: There may be a small hiatal hernia. The stomach is otherwise unremarkable. The small bowel loops are within normal limits. The appendix is well-visualized and normal. A moderate to large amount of residual stool is identified throughout the colon. There is extensive colonic diverticulosis. Prominent wall thickening of the sigmoid colon is evident with surrounding edema within the adjacent mesentery and a trace amount of free fluid within the pelvis. No drainable loculated fluid collections are evident. There is no free air. Nodes and vessels: No retroperitoneal or mesenteric adenopathy. Aorta and inferior vena cava are normal in caliber. Bones: No acute fracture or suspicious osseous lesion is identified. PELVIS: Genitourinary: Bladder wall thickness is normal. The uterus and ovaries are not adequately evaluated on CT, but are not enlarged. Miscellaneous: There may be a very small fat containing left in the hernia. No right inguinal hernia is evident. No pelvic adenopathy is identified. A small amount of free fluid is seen within the pelvis. There is no loculated fluid collection or free air. Bones: No suspicious bony lesions. No acute fractures are evident. IMPRESSION: 1. Colonic diverticulitis. Colonoscopy is recommended when the patient's acute symptoms have resolved to exclude the possibility of an underlying mass. 2. No bowel obstruction. There may be constipation. 3. Small amount of reactive free fluid within the pelvis. No abscess or evidence to suggest bowel perforation. 4. Small fat containing left inguinal hernia. Dictated by: Julio Fields M.D. on 10/03/2019 at 11:57 Approved by: Julio Fields M.D. on 10/03/2019 at 12:01 Discharge Plan Departure Patient Disposition: Home Clinical Impression: Diverticulitis Discharge Date/Time: 10/03/19 13:22 Instructions: Diverticulitis Activity Restrictions/Additional Instructions: 1. Drink plenty of fluids with frequent small sips. 2. For the next 24 hours a clear liquid diet is advised. After that please employ a brat diet which would include bananas, rice, apples, toast. 3. Please take medications as directed. Prescriptions sent to [facility] in [place] at your request. 4. Please follow-up with your doctor in the next 1-2 days. Call the office for an appointment. 5. Please return to the emergency Department for any worsening or persistent symptoms, such as increasing pain or fever. Prescriptions: New hydrocodone-acetaminophen 5-325 mg tablet 1 tab PO Q4-6H PRN (Reason: pain) Qty: 10 RF: 0 ondansetron 4 mg tablet,disintegrating 4 mg PO TID-QID PRN (Reason: nausea and vomiting) Qty: 10 RF: 0 ciprofloxacin HCl 500 mg tablet 500 mg PO BID Qty: 20 RF: 0 metronidazole [Flagyl] 500 mg tablet 500 mg PO Q8H 10 Days Qty: 30 RF: 0 No Action estradiol 0.5 mg tablet 0.5 mg PO DAILY Qty: 90 RF: 3 medroxyprogesterone 2.5 mg tablet 2.5 mg PO DAILY Qty: 90 RF: 3 Referrals: Emilio Sterling DO [Primary Care Provider] -
[2019-10-03 12:16] LABS: Add Manual Diff / Slide Review NO; Basophils Absolute Auto 0 /uL (0-100); Basophils Percent Auto 0.5 % (0-2); Eosinophils Absolute Auto 100 /uL (0-450); Eosinophils Percent Auto 1.2 % (2-4); Hematocrit 38.7 % (36-46); Hemoglobin 12.8 g/dL (12.0-16.0); Lymphocytes Absolute Auto 900 /uL (1100-4500); Lymphocytes Percent Auto 8.9 % (25-40); Mean Corpuscular Hemoglobin 29.1 PG (26-34); Monocytes Absolute Auto 600 /uL (0-900); Monocytes Percent Auto 6.2 % (3-14); Neutrophils Absolute Auto 8500 /uL (1500-7000); Neutrophils Percent Auto 83.2 % (50-75); Platelet Count 228 X10^3/uL (150-400); Red Cell Distribution Width 13.3 % (11.6-14.8); White Blood Cell Count 10.2 X10^3/uL (4.5-11.0)
--- NOTE | 2019-10-03 12:17 | DI.CT.S_ITS ---
PROCEDURE: CT ABDOMEN PELVIS W CON INDICATIONS: severe LLQ pain with radiation to back TECHNIQUE: After the administration of oral and intravenous contrast, 5 mm thick sections acquired from the diaphragms to the symphysis. 5 mm thick coronal and sagittal reformats were performed. For radiation dose reduction, the following was used: automated exposure control, adjustment of mA and/or kV according to patient size. COMPARISON: [facility], CT, CT ABDOMEN PELVIS W CON, 11/20/2018, 15:28. [facility], CT, ABDOMEN/PELVIS WITH CONTRAST, 12/20/2014, 8:21. FINDINGS: Image quality: Diagnostic. ABDOMEN: Lung bases: Lung bases are clear. Minimal atelectasis versus scarring within the lung bases is present. Heart size is normal. Solid organs: Liver is normal in size and enhancement. Gallbladder is surgically absent. Biliary system is non-dilated. Pancreas enhances normally. Spleen is normal in size and enhancement. No adrenal nodules. Kidneys are normal in size and enhancement, without hydronephrosis. Peritoneum and bowel: There may be a small hiatal hernia. The stomach is otherwise unremarkable. The small bowel loops are within normal limits. The appendix is well-visualized and normal. A moderate to large amount of residual stool is identified throughout the colon. There is extensive colonic diverticulosis. Prominent wall thickening of the sigmoid colon is evident with surrounding edema within the adjacent mesentery and a trace amount of free fluid within the pelvis. No drainable loculated fluid collections are evident. There is no free air. Nodes and vessels: No retroperitoneal or mesenteric adenopathy. Aorta and inferior vena cava are normal in caliber. Bones: No acute fracture or suspicious osseous lesion is identified. PELVIS: Genitourinary: Bladder wall thickness is normal. The uterus and ovaries are not adequately evaluated on CT, but are not enlarged. Miscellaneous: There may be a very small fat containing left in the hernia. No right inguinal hernia is evident. No pelvic adenopathy is identified. A small amount of free fluid is seen within the pelvis. There is no loculated fluid collection or free air. Bones: No suspicious bony lesions. No acute fractures are evident. IMPRESSION: 1. Colonic diverticulitis. Colonoscopy is recommended when the patient's acute symptoms have resolved to exclude the possibility of an underlying mass. 2. No bowel obstruction. There may be constipation. 3. Small amount of reactive free fluid within the pelvis. No abscess or evidence to suggest bowel perforation. 4. Small fat containing left inguinal hernia. Dictated by: Julio Fields M.D. on 10/03/2019 at 11:57 Approved by: Julio Fields M.D. on 10/03/2019 at 12:01
[2019-10-03 12:27] LABS: Alanine Aminotransferase 16 IU/L (<35); Albumin 4.4 g/dL (3.5-5.0); Albumin Globulin Ratio 1.4 (1.0-2.8); Alkaline Phosphatase 98 U/L (38-126); Aspartate Aminotransferase 23 IU/L (14-36); BUN Creatinine Ratio 13.9 (6-22); Bilirubin Total 0.8 mg/dL (0.2-1.3); Blood Urea Nitrogen 10 mg/dL (7-17); Calcium 9.2 mg/dL (8.4-10.2); Carbon Dioxide 26 mmol/L (22-32); Chloride 103 mmol/L (98-107); Estimated Glomerular Filt Rate > 60.0 mL/min (>60); Globulin 3.2 g/dL (1.7-4.1); Glucose 111 mg/dL (70-100); HEMOLYSIS < 15 (0-50); Lipase 49 U/L (23-300); Sodium 136 mmol/L (137-145); Total Protein 7.6 g/dL (6.3-8.2)
[2019-10-03 12:44] LABS: Bacteria Urine None Seen; WBC Urine None Seen (0-5/HPF)
[2019-10-03 12:52] LABS: Culture Indicated Urine Cult Not Indicated; RBC Urine 1-5/HPF (0-5/HPF); Squamous Epithelial Cell Urine 5-10 /HPF (0-5/HPF)
[2019-10-03] MEDS: SODIUM CHLORIDE 0.9% 1,000 ML 1000 ML IV (12:57)
== END 2019-10-03 13:22 | disposition home or self-care (01) ==
PROVIDERS: Emergency Provider Emergency Medicine; PCP Family Medicine
DX: K57.92 Diverticulitis of intestine, part unspecified, without perforation or abscess without bleeding (principal); R10.2 Pelvic and perineal pain
CPT/HCPCS: 36415; 74177; 80053; 81003; 81015; 83690; 85025; 93005; 93010; 96360; 99284; 99285; Q9967

== ENCOUNTER 2020-05-06 15:24 | Emergency (ER) | payer OTHER, SELFPAY ==
[2020-05-06] VITALS (11 sets, daily range): BP systolic 154–189; BP diastolic 83–98; PULSE 68–86; RESP 11–34; TEMP 36.8; O2SAT 98–100; BMI 30.3
--- NOTE | 2020-05-06 15:30 | ED_ITS ---
HPI - Chest Pain General Chief Complaint: Chest Pain Stated Complaint: CHEST PAIN GOING TO LEFR ARM Time Seen by Provider: 05/06/20 15:25 Source: patient Mode of arrival: Ambulatory Limitations: no limitations History of Present Illness HPI narrative: 49F nonsmoker with noncontributory medical history presents with a chief complaint of a sudden, severe sharp and stabbing left lateral chest pain that started while pushing a large cart at noon. The duration of symptoms was very brief and she continued working for the next hour and a half. She did have a mild residual ache under her left arm which has since resolved. She denies any dizziness, weakness or lightheadedness. She denies any shortness of breath nor nausea or vomiting. She is otherwise well and free of complaint. MD complaint: chest pain Onset (ago): hour(s) Duration: now resolved Onset: during exertion Pain location: left chest Severity: severe Quality: sharp Pain radiation: LUE Relieving factors: nothing Exacerbating factors: palpation and movement Treatments prior to arrival chest pain: none Related Data On Oral Contraceptives: Yes Previous Rx's Medication Instructions Recorded estradiol 0.5 mg tablet 0.5 mg PO DAILY #90 tab 05/26/19 medroxyprogesterone 2.5 mg tablet 2.5 mg PO DAILY #90 tab 05/26/19 ciprofloxacin HCl 500 mg PO BID #20 tab 10/03/19 hydrocodone-acetaminophen 1 tab PO Q4-6H PRN #10 tab 10/03/19 ondansetron 4 mg PO TID-QID PRN #10 tab 10/03/19 Allergies Allergy/AdvReac Type Severity Reaction Status Date / Time amoxicillin [AMOXICILLIN] Allergy Unknown hives Verified 05/06/20 15:31 Review of Systems Constitutional Constitutional: Denies chills, Denies fatigue, Denies fever(s), Denies frequent falls, Denies lethargy and Denies weakness Eyes Eyes: Denies change in vision, Denies eye discharge, Denies irritation and Denies loss of vision ENT Ears, Nose, Mouth, and Throat: Denies change in voice, Denies dizziness, Denies neck pain, Denies sore throat and Denies throat swelling Cardiovascular Cardiovascular: Reports chest pain, Denies irregular heart rhythm, Denies lightheadedness, Denies palpitations, Denies dyspnea, Denies dyspnea on exertion and Denies orthopnea Respiratory Respiratory: Denies cough, Denies dyspnea, Denies dyspnea on exertion and Denies wheezing Gastrointestinal Gastrointestinal: Denies abdominal pain, Denies change in bowel habits, Denies diarrhea, Denies nausea and Denies vomiting Musculoskeletal Musculoskeletal: Denies neck pain and Denies numbness Integumentary/Breasts Skin/Breast: Denies pruritus, Denies erythema, Denies rash and Denies wounds Neurologic Neurologic: Denies behavioral changes, Denies confusion, Denies dizziness, De nies frequent falls, Denies loss of vision, Denies numbness and Denies weakness Psychiatric Psychiatric: Denies anxiety, Denies behavioral changes, Denies confusion, Denies depression, Denies homicidal ideation and Denies suicidal ideation Endocrine Endocrine: Denies fatigue, Denies flushing and Denies palpitations Hematologic/Lymphatic Hematologic/Lymphatic: Denies easy bruising Allergic/Immunologic Allergic/Immunologic: Denies urticaria, Denies throat swelling and Denies wheezing Patient History Medical History (Updated 05/06/20 @ 17:42 by Melquiades Perez DO) GERD (gastroesophageal reflux disease) Surgical History History of third molar tooth extraction Status post laparoscopic cholecystectomy Status post laparoscopy (09/27/14) Status post laparoscopy (06/24/15) Social History Smoking Status: Never smoker Smoking Status: Never smoker alcohol intake frequency: holidays/special occasions only Substance Use Type: does not use Exam Narrative Exam Narrative: GENERAL: [49] year old patient appears stated age. Well- nourished, well-developed patient, in mild distress. HEAD: Atraumatic. Normocephalic. EYES: Pupils equal round and reactive. Extraocular motions intact. No scleral icterus. No injection or drainage. ENT: Nose without bleeding, purulent drainage. Throat without erythema, tonsillar hypertrophy or exudate. Airway patent. NECK: Trachea midline. Non tender CARDIOVASCULAR: Regular rate and rhythm without murmurs, gallops, or rubs. RESPIRATORY: Clear to auscultation. Breath sounds equal bilaterally. No wheezes, rales, or rhonchi. GASTROINTESTINAL: Abdomen soft, non-tender, nondistended. EXTREMITIES: No edema or joint tenderness. BACK: Nontender without deformity or crepitance. No flank tenderness. NEURO: AOx3. SKIN: No rash or erythema of visible areas Initial Vital Signs Initial Vital Signs: Vital Signs Temperature 98.2 F 05/06/20 15:29 Pulse Rate 86 05/06/20 15:29 Respiratory Rate 16 05/06/20 15:29 Blood Pressure 189/92 H 05/06/20 15:29 Pulse Oximetry 98 05/06/20 15:29 Course Orders Ordered: ED Orders 05/06/20 15:29 EKG-12 Lead Stat 05/06/20 15:32 XR chest 1V Stat 05/06/20 15:35 Complete Blood Count AUTO DIFF Stat Partial Thromboplastin Time Stat Prothrombin Time INR Stat 05/06/20 15:58 Comprehensive Metabolic Panel Stat D Dimer Stat Lipase Stat Troponin & CK Cardiac Panel Stat 05/06/20 17:30 Troponin I Stat Vital Signs Vital signs: Vital Signs - 8 hr 05/06/20 15:29 05/06/20 15:39 05/06/20 16:00 Temperature 98.2 F Pulse Rate 86 86 77 Respiratory Rate 16 18 34 H Blood Pressure 189/92 H 168/83 H Pulse Oximetry 98 100 99 05/06/20 16:05 05/06/20 16:06 05/06/20 16:27 Temperature Pulse Rate 81 80 78 Respiratory Rate 11 L 18 19 Blood Pressure 166/83 H 166/83 H 171/84 H Pulse Oximetry 99 99 99 05/06/20 16:30 05/06/20 17:00 05/06/20 17:27 Temperature Pulse Rate 74 79 74 Respiratory Rate 16 16 16 Blood Pressure 168/83 H 165/85 H 176/86 H Pulse Oximetry 99 100 99 05/06/20 18:15 Temperature Pulse Rate 68 Respiratory Rate 25 H Blood Pressure 154/98 H Pulse Oximetry 99 MDM - Chest Pain Lab Data Result diagrams: 05/06/20 15:35 05/06/20 15:58 Labs: Lab Results 05/06/20 05/06/20 05/06/20 Range/Units 15:35 15:35 15:58 WBC 5.0 (4.5-11.0) X10^3/uL RBC 4.61 (4.0-5.2) X10^6/uL Hgb 13.1 (12.0-16.0) g/dL Hct 40.4 (36-46) % MCV 87.7 (80-100) fL MCH 28.5 (26-34) PG MCHC 32.4 (30-36) % RDW 13.4 (11.6-14.8) % Plt Count 277 (150-400) X10^3/uL Neut % (Auto) 54.7 (50-75) % Lymph % (Auto) 34.1 (25-40) % [place] % (Auto) 6.0 (3-14) % Eos % (Auto) 4.4 H (2-4) % Baso % (Auto) 0.8 (0-2) % Neut # (Auto) 2700 (4783-6229) /uL Lymph # (Auto) 1700 (4623-4841) /uL [place] # (Auto) 300 (0-900) /uL Eos # (Auto) 200 (0-450) /uL Baso # (Auto) 0 (0-100) /uL PT 11.0 (10.1-12.7) SECONDS INR 1.0 (0.9-1.3) APTT 31 (26.4-36.2) SECONDS D-Dimer (<230) ng/mL Sodium 136 L (137-145) mmol/L Potassium 4.4 (3.4-5.1) mmol/L Chloride 104 (98-107) mmol/L Carbon Dioxide 28 (22-32) mmol/L BUN 14 (7-17) mg/dL Creatinine 0.80 (0.52-1.04) mg/dL Estimated GFR > 60.0 (>60) mL/min BUN/Creatinine Ratio 17.5 (6-22) Glucose 107 H (70-100) mg/dL Calcium 9.4 (8.4-10.2) mg/dL Total Bilirubin 0.3 (0.2-1.3) mg/dL AST 30 (14-36) IU/L ALT 19 (<35) IU/L Alkaline Phosphatase 93 (38-126) U/L Total Creatine Kinase 68 (30-135) U/L CK-MB (CK-2) TNP CK-MB (CK-2) Rel Index TNP Troponin I < 0.012 (0.01-0.034) ng/mL Total Protein 7.7 (6.3-8.2) g/dL Albumin 4.6 (3.5-5.0) g/dL Globulin 3.1 (1.7-4.1) g/dL Albumin/Globulin Ratio 1.5 (1.0-2.8) Lipase 111 (23-300) U/L 05/06/20 05/06/20 Range/Units 15:58 17:39 WBC (4.5-11.0) X10^3/uL RBC (4.0-5.2) X10^6/uL Hgb (12.0-16.0) g/dL Hct (36-46) % MCV (80-100) fL MCH (26-34) PG MCHC (30-36) % RDW (11.6-14.8) % Plt Count (150-400) X10^3/uL Neut % (Auto) (50-75) % Lymph % (Auto) (25-40) % [place] % (Auto) (3-14) % Eos % (Auto) (2-4) % Baso % (Auto) (0-2) % Neut # (Auto) (1681-5354) /uL Lymph # (Auto) (2888-7747) /uL [place] # (Auto) (0-900) /uL Eos # (Auto) (0-450) /uL Baso # (Auto) (0-100) /uL PT (10.1-12.7) SECONDS INR (0.9-1.3) APTT (26.4-36.2) SECONDS D-Dimer < 200 (<230) ng/mL Sodium (137-145) mmol/L Potassium (3.4-5.1) mmol/L Chloride (98-107) mmol/L Carbon Dioxide (22-32) mmol/L BUN (7-17) mg/dL Creatinine (0.52-1.04) mg/dL Estimated GFR (>60) mL/min BUN/Creatinine Ratio (6-22) Glucose (70-100) mg/dL Calcium (8.4-10.2) mg/dL Total Bilirubin (0.2-1.3) mg/dL AST (14-36) IU/L ALT (<35) IU/L Alkaline Phosphatase (38-126) U/L Total Creatine Kinase (30-135) U/L CK-MB (CK-2) CK-MB (CK-2) Rel Index Troponin I < 0.012 (0.01-0.034) ng/mL Total Protein (6.3-8.2) g/dL Albumin (3.5-5.0) g/dL Globulin (1.7-4.1) g/dL Albumin/Globulin Ratio (1.0-2.8) Lipase (23-300) U/L ECG Data Interpretation: EKG is normal sinus rhythm rate [ 79] and free of any signs of ischemia or ectopy. No ST segmental elevation or depression. No T wave inversions MDM Narrative Medical decision making narrative: Multiple causes of chest pain considered including [place], PE, pneumothorax, pneumonia, aortic dissection, and pleurisy. Patient reports no radiation, no diaphoresis, no provocation with exertion, and no vomiting. Pain is sharp and stabbing and reproducible with range of motion and palpation Patient's symptoms improved over duration of stay with above-stated therapies. Findings and discharge diagnosis discussed with patient/family followed by verbalization of understanding Return precautions discussed with patient/family whom verbalize understanding. Discharge Plan Departure Patient Disposition: Home Clinical Impression: Atypical chest pain Instructions: DI for Atypical Chest Pain Activity Restrictions/Additional Instructions: *You have been diagnosed with [atypical chest pain. Causes we considered include heart attack, blood clot and other. Your labs, EKGs, *What to do: *Take medications as directed: Please consider the addition of [id number] anti-inflammatories *Follow up with your primary care provider in 2-3 days, call for an appointment. Let them know you were seen in the Emergency Department and that we ask that you be seen in follow up *Return to ER if you should have any new, worsening or concerning symptoms, such as [recurrence of pain, shortness of breath, fever over 101 F, or other bothersome symptoms] Prescriptions: No Action estradiol 0.5 mg tablet 0.5 mg PO DAILY Qty: 90 RF: 3 medroxyprogesterone 2.5 mg tablet 2.5 mg PO DAILY Qty: 90 RF: 3 hydrocodone-acetaminophen 5-325 mg tablet 1 tab PO Q4-6H PRN (Reason: pain) Qty: 10 RF: 0 ondansetron 4 mg tablet,disintegrating 4 mg PO TID-QID PRN (Reason: nausea and vomiting) Qty: 10 RF: 0 ciprofloxacin HCl 500 mg tablet 500 mg PO BID Qty: 20 RF: 0 Referrals: Emilio Sterling DO [Primary Care Provider] -
--- NOTE | 2020-05-06 15:32 | DI.RAD.S_ITS ---
PROCEDURE: XR CHEST 1V INDICATIONS: chest pain TECHNIQUE: One view of the chest was acquired. COMPARISON: [facility], CR, XR CHEST 1V, 06/15/2018, 15:28. FINDINGS: Surgical changes and devices: None. Lungs and pleura: Lungs are clear. No pleural effusions or pneumothorax. Mediastinum: Mediastinal contours appear normal. Heart size is normal. Bones and chest wall: No suspicious bony lesions. Overlying soft tissues appear unremarkable. IMPRESSION: Normal for age, source of current chest pain symptoms is not seen. Dictated by: Chance Pantoja M.D. on 05/06/2020 at 16:01 Approved by: Chance Pantoja M.D. on 05/06/2020 at 16:01
[2020-05-06 15:50] LABS: Add Manual Diff / Slide Review NO; Basophils Absolute Auto 0 /uL (0-100); Basophils Percent Auto 0.8 % (0-2); Eosinophils Absolute Auto 200 /uL (0-450); Eosinophils Percent Auto 4.4 % (2-4); Hematocrit 40.4 % (36-46); Hemoglobin 13.1 g/dL (12.0-16.0); Lymphocytes Absolute Auto 1700 /uL (1100-4500); Lymphocytes Percent Auto 34.1 % (25-40); Mean Corpuscular HGB Conc 32.4 % (30-36); Mean Corpuscular Hemoglobin 28.5 PG (26-34); Mean Corpuscular Volume 87.7 fL (80-100); Monocytes Absolute Auto 300 /uL (0-900); Neutrophils Absolute Auto 2700 /uL (1500-7000); Neutrophils Percent Auto 54.7 % (50-75); Platelet Count 277 X10^3/uL (150-400); Red Blood Cell Count 4.61 X10^6/uL (4.0-5.2); Red Cell Distribution Width 13.4 % (11.6-14.8)
[2020-05-06 16:01] LABS: PTT Partial Thromboplastin Tim 31 SECONDS (26.4-36.2)
[2020-05-06 16:14] LABS: Alanine Aminotransferase 19 IU/L (<35); Albumin 4.6 g/dL (3.5-5.0); Albumin Globulin Ratio 1.5 (1.0-2.8); Alkaline Phosphatase 93 U/L (38-126); Aspartate Aminotransferase 30 IU/L (14-36); BUN Creatinine Ratio 17.5 (6-22); Bilirubin Total 0.3 mg/dL (0.2-1.3); Blood Urea Nitrogen 14 mg/dL (7-17); Calcium 9.4 mg/dL (8.4-10.2); Carbon Dioxide 28 mmol/L (22-32); Chloride 104 mmol/L (98-107); Creatine Kinase 68 U/L (30-135); Estimated Glomerular Filt Rate > 60.0 mL/min (>60); Globulin 3.1 g/dL (1.7-4.1); Glucose 107 mg/dL (70-100); HEMOLYSIS 32 (0-50); Lipase 111 U/L (23-300); Potassium 4.4 mmol/L (3.4-5.1); Sodium 136 mmol/L (137-145); Total Protein 7.7 g/dL (6.3-8.2)
[2020-05-06 16:25] LABS: Troponin I < 0.012 ng/mL (0.01-0.034)
[2020-05-06 17:15] LABS: D Dimer < 200 ng/mL (<230)
[2020-05-06 18:08] LABS: Troponin I < 0.012 ng/mL (0.01-0.034)
== END 2020-05-06 18:49 | disposition home or self-care (01) ==
PROVIDERS: Emergency Provider Emergency Medicine; PCP Family Medicine
DX: R07.89 Other chest pain (principal)
CPT/HCPCS: 36415; 71045; 80053; 82550; 83690; 84484; 85025; 85379; 85610; 85730; 93005; 93010; 99284